=== PATIENT | female | born 1995 | race Caucasian/White ===

== ENCOUNTER 2023-01-28 07:35 | Outpatient (CLI) | payer OTHER, BC, SELFPAY | END 2023-01-28 07:36 | disposition home or self-care (01) | LOC: NFLDREF 01-29 14:31 | PROVIDERS: Visit Provider Physician Assistant | DX: Z34.90 Encounter for supervision of normal pregnancy, unspecified, unspecified trimester (principal) | CPT/HCPCS: 84702 ==

== ENCOUNTER 2023-01-30 09:15 | Outpatient (CLI) | payer OTHER, BC, SELFPAY | END 2023-01-30 09:16 | disposition home or self-care (01) | LOC: NFLDREF 15:37 | PROVIDERS: Visit Provider Physician Assistant | DX: E28.2 Polycystic ovarian syndrome (principal) | CPT/HCPCS: 84702 ==

== ENCOUNTER 2023-02-24 15:42 | Outpatient (CLI) | payer OTHER, BC, SELFPAY ==
--- NOTE | 2023-02-24 16:00 | CRLHL7_ITS ---
For Patients: As a result of the Century Cures Act, medical imaging exams and procedure reports are released immediately into your electronic medical record. You may view this report before your referring provider. If you have questions, please contact your health care provider. INDICATION: First trimester scan, establish dates. COMPARISON: None. TECHNIQUE: Real-time torres-scale imaging of the pelvis was performed. FINDINGS: Sonographic imaging demonstrates a single living intrauterine gestation. The embryo demonstrates a regular cardiac rate measuring 173 beats per minute. The embryo`s crown-rump length measurement of 1.7 cm corresponds to a gestational age of 8 weeks 1 day with a sonographic due date of 10/05/2023. There is a normal-appearing yolk sac. There are no gross abnormalities noted within the embryo at this early state of development. The gestational sac has a normal appearance. There is no evidence of a perigestational hemorrhage. The amount of fluid within the sac appears appropriate for gestational age. The cervix is closed. The myometrium appears normal. The ovaries are of normal size. Corpus luteal cyst left ovary. There are no suspicious fluid collections noted in the cul-de-sac. IMPRESSION: Single living intrauterine with sonographic gestational age 8 weeks 1 day and sonographic due date of 10/05/2023. Dictated by Morgan Meeks MD @ 02/25/2023 10:16:45 AM (Electronically Signed)
== END 2023-02-24 15:43 | disposition home or self-care (01) ==
LOC: US 15:43
PROVIDERS: Visit Provider Physician Assistant
DX: Z34.91 Encounter for supervision of normal pregnancy, unspecified, first trimester (principal); Z3A.08 8 weeks gestation of pregnancy
CPT/HCPCS: 76817; 86703; 86706; 86803; 86850; 86900; 86901; 87086; 87340; 87491; 87591

== ENCOUNTER 2023-02-24 17:45 | Outpatient (CLI) | payer OTHER, BC, SELFPAY | END 2023-02-24 17:46 | disposition home or self-care (01) | PROVIDERS: Visit Provider Physician Assistant | DX: Z34.92 Encounter for supervision of normal pregnancy, unspecified, second trimester (principal); Z3A.19 19 weeks gestation of pregnancy | CPT/HCPCS: 86592; 86704; 86762; 86787 ==

== ENCOUNTER 2023-05-20 11:52 | Outpatient (CLI) | payer OTHER, BC, SELFPAY ==
--- NOTE | 2023-05-20 12:15 | CRLHL7_ITS ---
For Patients: As a result of the 21st Century Cures Act, medical imaging exams and procedure reports are released immediately into your electronic medical record. You may view this report before your referring provider. If you have questions, please contact your health care provider. OB ULTRASOUND ??? ANATOMY SURVEY PRISCILLA by US: 10/05/2023. GA: 20 w, 2 d. INDICATION: Anatomy survey. FINDINGS: position: Breech. Cervix: Visualized. Technique: Transabdominal. Length of closed cervix: 3.2 cm. Placenta/cord: Anterior. Fundal. Posterior. Technique: Transabdominal. Placenta tip to internal OS: 7.0 cm. Umbilical Cord: 3-vessel cord. Placenta insertion: Central. Amniotic Fluid: 4.9 cm SDP (greater than/equal to: 2- less than 8 cm). SURVEY: Observed Structures Cerebellum: Yes. 1.9 cm; 19 w 6 d. Cisterna Magna: Yes. 3.7 mm. Nuchal Fold: Yes. 4.3 mm. Lateral Ventricle: Yes. 5.6 mm. CSP: Yes. Midline Falx: Yes. Choroid Plexus: Yes. Spine: Yes. Stomach: Yes. Abd Cord Insertion: Yes. Urinary Bladder: Yes. Kidneys: Yes. Diaphragm: Yes. Nose/lips: Yes. Orbital view: Yes. Profile: Yes. Upper Extremities: Yes. Lower Extremities: Yes. Hands: Yes. Feet: Yes. Four-Chamber Heart: Yes. LVOT: Yes. RVOT: Yes. 3VV: Yes. 3VTV: Yes. BPD: 4.7 cm. 20 w 2 d, 50 percent. HC: 17.9 cm. 20 w 3 d, 46 percent. AC: 15.3. cm. 20 w 4 d, 52 percent. FL: 3.4 cm. 20 w 3 d, 50 percent. FL/AC: 21.88 percent. HC/AC Ratio: 1.17. Heart rate: 159 beats per minute. age by this US: 20 w 2 d. PRISCILLA by this US: 10/05/2023. EFW: 346.99 g. Weight: 13 oz. Percentile by PRISCILLA: 57 percent. IMPRESSION: Single live intrauterine gestation. There are no gross anomalies visualized. Christina Garza M.D. Diagnostic/Breast Radiologist [employer] [email or web address] DIALLO/tomasa [email or web address]/Dictated by: Christina Garza MD @ 05/22/2023 5:52:00 AM (Electronically Signed)
== END 2023-05-20 11:53 | disposition home or self-care (01) ==
LOC: US 11:53
PROVIDERS: Visit Provider Physician Assistant
DX: Z34.92 Encounter for supervision of normal pregnancy, unspecified, second trimester (principal); Z3A.20 20 weeks gestation of pregnancy
CPT/HCPCS: 76805

== ENCOUNTER 2023-07-17 14:35 | Outpatient (CLI) | payer OTHER, BC, SELFPAY | END 2023-07-17 14:36 | disposition home or self-care (01) | LOC: NFLDREF 07-20 14:38 | PROVIDERS: Visit Provider Obstetrics & Gynecology | DX: Z34.93 Encounter for supervision of normal pregnancy, unspecified, third trimester (principal); Z3A.28 28 weeks gestation of pregnancy | CPT/HCPCS: 86592 ==

== ENCOUNTER 2023-08-14 07:03 | Outpatient (CLI) | payer OTHER, BC, SELFPAY ==
--- NOTE | 2023-08-14 07:15 | US_ITS ---
Patient: MILO VELASQUEZ Facility:?[facility] Patient ID:?[id number] Site Patient ID:?[id number]. Site :?[id number] Study:?US-OB Pelvis OB F/U GROWTH-08/14/2023 8:01:08 AM Ordering Physician:?TRISTON MORILLO M.D. Final Report: INDICATION: Third trimester scan, evaluate growth. Covid in COMPARISON: 05/20/2023 TECHNIQUE: Real time torres scale imaging of the fetus was performed. FINDINGS: Sonographic imaging demonstrates a single living intrauterine gestation. Fetus demonstrates a regular cardiac rate of 145 beats per minute. Fetus has a vertex position. The placenta lies anterior fundal. Amniotic fluid volume appears normal and there is a single deepest vertical pocket: 5.7 cm. The estimated weight is 2289gm which lies at the 80th %. On the prior OB ultrasound exam dated 05/20/2023 the estimated weight was at the 57th%. BPD and HC< 97th percentile. AC is 63rd percentile. FL 59th percentile. The HC/AC ratio measures 1.13 range (0.93-1.11). IMPRESSION: Sonographic gestational age 35 weeks 1 day and sonographic due date of 09/17/2023. Sonographic age is 18 days ahead of the clinical age. Estimated weight 80th percentile. Abdominal circumference 63rd percentile. BPD and HC< 97th percentile Dictated by Morgan Meeks MD @ 08/14/2023 11:34:28 AM Signed by:?Morgan Meeks MD @08/14/2023 11:34:28 AM (Electronic Signature)
== END 2023-08-14 07:04 | disposition home or self-care (01) ==
LOC: US 07:04
PROVIDERS: Visit Provider Obstetrics & Gynecology
DX: O98.513 Other viral diseases complicating pregnancy, third trimester (principal); U07.1 COVID-19; Z3A.35 35 weeks gestation of pregnancy
CPT/HCPCS: 76816

== ENCOUNTER 2023-09-07 09:31 | Outpatient (CLI) | payer OTHER, BC, SELFPAY | END 2023-09-07 09:32 | disposition home or self-care (01) | LOC: NFLDREF 09-11 10:02 | PROVIDERS: Visit Provider Obstetrics & Gynecology | DX: O13.3 Gestational [pregnancy-induced] hypertension without significant proteinuria, third trimester (principal); Z3A.36 36 weeks gestation of pregnancy | CPT/HCPCS: 82565; 82570; 84156; 84450; 84460; 84520 ==

== ENCOUNTER 2023-09-07 12:01 | Inpatient (IN) | payer OTHER, BC, SELFPAY ==
[2023-09-07] VITALS (135 sets, daily range): BP systolic 132–164; BP diastolic 81–110; PULSE 88–171; RESP 16–18; TEMP 36.6–37.2; O2SAT 94–100; BMI 34.9
[2023-09-07] MEDS: LACTATED RINGERS 1000 ML 1,000 ML 75 ML IV ×2 (11:14→15:00)
[2023-09-07] MEDS: LABETALOL HCL 5 MG/ML inj IVP ×2 (11:16→11:41)
[2023-09-07 11:19] LABS: Hematocrit 36.6 % (33.0-51.0); Hemoglobin* 12.3 gm/dL (12.0-16.0); Mean Corpuscular HGB Conc 34 gm/dL (32-36); Mean Corpuscular Hemoglobin 30 pg (26-34); Mean Corpuscular Volume 90 fL (80-100); Platelet Count* 317 K/uL (140-440); Red Blood Count 4.05 m/uL (4.00-5.20); White Blood Count* 12.51 K/uL (4.50-11.00)
[2023-09-07] MEDS: MAGNESIUM IV 4 GM/100 ML PIGGYBACK IVPB (11:31)
[2023-09-07 11:34] LABS: Slide Review Reflex No
[2023-09-07 11:44] LABS: Aspartate Amino Transferase* 18 U/L (12-35); Creatinine* 0.5 mg/dL (0.5-1.5); Estimated Glomerular Filt Rate 132 ml/min
[2023-09-07 11:45] LABS: Alanine Aminotransferase* 11 U/L (4-35); Blood Urea Nitrogen* 9 mg/dL (5-24)
[2023-09-07] MEDS: MAGNESIUM Infusion 40 GM/1,000 ML IV.SOLN IVPB (12:06)
[2023-09-07] MEDS: AMPICILLIN 2 GM in 0.9 % SODIUM CHLORIDE Mini-bag 100 ML IVPB (13:11)
[2023-09-07] MEDS: OXYTOCIN 30 unit/500 ML in NS 30 UNIT/500 ML BAG IVPB (14:00)
[2023-09-07] MEDS: NIFEdipine 30 MG TAB.ER.24 PO (14:11)
[2023-09-07] MEDS: AMPICILLIN 1 GM in 0.9 % SODIUM CHLORIDE Mini-bag 100 ML IVPB ×2 (17:10→22:35)
[2023-09-07 17:41] LABS: Alanine Aminotransferase* 12 U/L (4-35); Aspartate Amino Transferase* 18 U/L (12-35); Blood Urea Nitrogen* 8 mg/dL (5-24); Creatinine* 0.5 mg/dL (0.5-1.5); Est. Creatinine Clearance* 164.35; Estimated Glomerular Filt Rate 132 ml/min
[2023-09-07 17:44] LABS: Hematocrit 37.1 % (33.0-51.0); Hemoglobin* 12.1 gm/dL (12.0-16.0); Mean Corpuscular HGB Conc 33 gm/dL (32-36); Mean Corpuscular Hemoglobin 30 pg (26-34); Mean Corpuscular Volume 91 fL (80-100); Platelet Count* 310 K/uL (140-440); Red Blood Count 4.08 m/uL (4.00-5.20); White Blood Count* 13.94 K/uL (4.50-11.00)
[2023-09-07 17:49] LABS: Slide Review Reflex No
[2023-09-07 19:36] LABS: Magnesium* 4.4 mg/dL (1.5-2.6)
--- NOTE | 2023-09-07 23:03 | P.LDBA_ITS ---
Subjective History of Present Illness Time Seen by Provider: 13:00 Date Seen: 09/07/23 Narrative: Patient is being admitted to Labor and Delivery for IOL due to preeclampsia with severe features. She is a 27 year old at 36.0 weeks gestation. Her full history and physical was dictated by Dr. Roach on 09/07/23 as she was seen in clinic today. Please see this for details. Active movement. Denies Ctx, LOF, vaginal bleeding or abnormal vaginal discharge. Denies any persistent headache, vision changes, SOB, right upper quadrant/epigastric pain, or rapidly expanding edema. Specific Issues/Plans Spouse: Nicolas. Baby: Boy! Juvencio Fisher. H&P done by Dr. Roach on 09/07/2023. Placenta: bilobed 1. PCOS. Was undergoing a infertility workup, and she conceived spontaneously! 2. Anxiety, managed well with the buspirone 5 mg b.i.d. 3. History of vaping, quit with +UPT 4. Obesity, BMI 30.2 Hemoglobin A1c: 5.5% Aspirin 81 mg 12-36 weeks 1hr GTT: 139 5. HBV, non-immune 6. COVID infection on 06/09 USN for EFW at 32 weeks: BPD>97%, HC>97%, AC63%, FL59%. EFW 80%. Flu shot: Declined COVID: Declined Tdap: 07/30/2023 OB - Problem Based A/P Additional Plan (1) Pre-eclampsia, severe: Status: Acute Plan Pre-Eclampsia with severe features ? Based on severe range in blood pressures requiring IV antihypertensive ? BPs 140s -160s/90s -100s ? Symptoms: asymptomatic ? Magnesium: On magnesium sulfate for seizure prophylaxis ? IV antihypertensives: Received 20 and 40 mg of labetalol. Will give p.o. nifedipine XL 30 mg ? Pre-eclampsia labs on 09/07/2023: Hgb 12.5 Plt 346 Cr 0.5 ALT 12 AST ? UOP: Adequate Induction of labor * Cervix is favorable. Will start Pitocin and plan for AROM when she is asuncion more regularly * GBS was just collected today. I called the lab and they report that the fast return time on the result is 24 hours, even stat. Discussed with patient that I recommend antibiotics for GBS prophylaxis until we get result back. We can discontinue the antibiotics if she remains undelivered and GBS is negative. OB Exam Physical Exam Vital signs: Temp Pulse Resp BP Pulse Ox 97.9 F 96 18 135/85 99 09/07/23 22:29 09/07/23 22:29 09/07/23 22:29 09/07/23 22:29 09/07/23 22:58 Narrative: Physical exam: General: No acute distress Psych: Alert and oriented x3, full affect HEENT: Normocephalic, atraumatic Lungs: Unlabored breathing Neuro: No focal deficit. Mentating appropriately Abdomen: Gravd. Soft, no tenderness, rebound, or guarding Pelvic exam: 2/90/-3, soft, mid
[2023-09-07 23:17] LABS: Hematocrit 33.8 % (33.0-51.0); Hemoglobin* 11.1 gm/dL (12.0-16.0); Mean Corpuscular HGB Conc 33 gm/dL (32-36); Mean Corpuscular Hemoglobin 30 pg (26-34); Mean Corpuscular Volume 92 fL (80-100); Platelet Count* 291 K/uL (140-440); Red Blood Count 3.69 m/uL (4.00-5.20); White Blood Count* 12.74 K/uL (4.50-11.00)
[2023-09-07 23:20] LABS: Slide Review Reflex No
--- NOTE | 2023-09-07 23:24 | PM.OBPNL ---
Subjective Time Seen by Provider: 20:00 Date Seen: 09/07/23 Objective Vital Signs: Last Vital Signs Temp 97.9 F 09/07/23 22:29 Pulse 96 09/07/23 22:29 Resp 18 09/07/23 22:29 BP 135/85 09/07/23 22:29 Pulse Ox 100 09/07/23 23:23 Pelvic Exam Dilation (cm): 3 Effacement (%): 90 Station: -2 Comments: AROM with clear fluid. No complications and the patient tolerated the procedure well. Contractions Monitor mode: External Contraction pattern: Regular Contraction intensity: Mild Pitocin Rate (mU/min): 9 Assessment Assessment: induction ongoing Status: Category l
[2023-09-07 23:35] LABS: Alanine Aminotransferase* 11 U/L (4-35); Aspartate Amino Transferase* 16 U/L (12-35); Blood Urea Nitrogen* 8 mg/dL (5-24); Creatinine* 0.5 mg/dL (0.5-1.5); Est. Creatinine Clearance* 164.35; Estimated Glomerular Filt Rate 132 ml/min
[2023-09-08] VITALS (181 sets, daily range): BP systolic 109–164; BP diastolic 56–105; PULSE 87–127; RESP 16–18; TEMP 36.5–37; O2SAT 18–99
[2023-09-08] MEDS: ROPIVACAINE 0.2% 100 ml 100 ML 12 MG EPIDURAL ×2 (00:12→07:19)
[2023-09-08] MEDS: LIDOCAINE 2% (PF) 5 ML VIAL EPIDURAL (00:13)
--- NOTE | 2023-09-08 00:44 | PM.ANBPRC ---
[facility] Family History Paternal Grandfather Heart disease Mother High blood pressure High cholesterol Father High blood pressure High cholesterol Other Breast cancer Colon cancer Social History Narrative: History of blood transfusion: yes. 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 Marital status: . Yazdanism/cultural needs: no. Chemical or radiation exposure: no. Pre- tobacco use: Vaping. Pre- alcohol use: no. Current tobacco use: no. Current alcohol use: no. Recreational drug use: no. Dietary restrictions: no. Blood transfusion acceptable in an emergency: yes. FAMILY AND GENETIC HISTORY: Negative for recurrent loss, defects, inheritable disease PSYCHOSOCIAL HISTORY: History of depression or currently depressed: no. Current or past physical, emotional, or sexual mistreatment: no. Problems that will make it hard to make it to appointments: no What is your current living situation?: I presently have a place to live Problems where you live: no known problems In the past 12 months, utilities in danger of being shut off: no In past 12 months, lack of transportation kept you from medical appts, meetings, work, or getting things needed for daily living: no In the past 12 mos, have been you worried that your food would run out before you had money to buy more?: never true In the past 12 mos, the food you bought just didn't last and you didn't have money to buy more?: never true Smoking Status: Former smoker How often does anyone, including family, friends and others, physically hurt you: never How often does anyone, including family, friends and others, insult or talk down to you: never How often does anyone, including family, friends and others, threaten you with harm: never How often does anyone, including family, friends and others, scream or curse at you: never Little interest or pleasure in doing things: not at all Feeling down, depressed, or hopeless: not at all Meds Home Medications and Allergies Home Medications Medication Instructions Recorded Confirmed Type docosahexaenoic acid 200 mg 200 mg PO 02/24/23 09/07/23 History capsule ( DHA) multivitamin (Daily Multi-Vitamin 1 tab PO QAM 02/24/23 09/07/23 History tablet) aspirin 81 mg tablet,delayed 81 mg PO QDAY 05/20/23 09/07/23 History release (Adult Aspirin Regimen) Allergies Allergy/AdvReac Type Severity Reaction Status Date / Time Sulfa (Sulfonamide Allergy Unknown Unknown Verified 09/07/23 10:23 Antibiotics) Results Labs Labs: Laboratory Results - last 24 hr 09/07/23 09/07/23 09/07/23 11:05 17:10 23:10 WBC 12.51 H 13.94 H 12.74 H RBC 4.05 4.08 3.69 L Hgb 12.3 12.1 11.1 L Hct 36.6 37.1 33.8 MCV 90 91 92 MCH 30 30 30 MCHC 34 33 33 Plt Count 317 310 291 BUN 9 8 8 Creatinine 0.5 0.5 0.5 Estimated Creat Clear 164.35 164.35 Estimated GFR 132 132 132 Magnesium 4.4 H* AST 18 18 16 ALT 11 12 11 Blood Type A Positive Antibody Screen NEGATIVE Vital Signs Vital Signs: Last Vital Signs Temp 98.5 F 09/08/23 00:30 Pulse 100 09/08/23 00:42 Resp 18 09/07/23 23:24 BP 130/86 09/08/23 00:42 Pulse Ox 97 09/08/23 00:40 Weight: 101.196 kg Height: 170.18 cm Anesthesia Procedures Epidural Insertion Patient Location: OB Start Time: 00:00 Stop Time: 01:00 Start Date: 09/08/23 Stop Date: 09/08/23 Reason for Block: procedure for pain Patient Position: sitting Performed By: Saige Delgadillo Preanesthetic Checklist: IV checked, risks and benefits discussed, monitors and equipment checked, pre-op evaluation, timeout performed and anesthesia consent Prep: chlorhexidine gluconate Monitoring: blood pressure monitoring, continuous pulse oximetry and heart rate Approach: midline Vertebral Space: lumbar (1-5) Epidural Technique: DORINDA saline Needle Type: Tuohy needle Injection Technique: continuous catheter (continuous catheter) Needle gauge: 17 Needle Length (cm): 10 cm Needle Insertion Depth (cm): 8 Catheter Gauge: 19 Catheter Type: multi-orifice Catheter at skin depth (cm): 15 Test Dose Result: negative and lidocaine 1.5% with epinephrine 1 to 200,000
[2023-09-08] MEDS: AMPICILLIN 1 GM in 0.9 % SODIUM CHLORIDE Mini-bag 100 ML IVPB ×3 (01:49→09:20)
[2023-09-08] MEDS: ONDANSETRON 2 MG/ML inj 4 MG IV ×2 (02:46→09:04)
[2023-09-08 05:24] LABS: Hematocrit 36.3 % (33.0-51.0); Hemoglobin* 11.9 gm/dL (12.0-16.0); Mean Corpuscular HGB Conc 33 gm/dL (32-36); Mean Corpuscular Hemoglobin 30 pg (26-34); Mean Corpuscular Volume 91 fL (80-100); Platelet Count* 306 K/uL (140-440); Red Blood Count 3.97 m/uL (4.00-5.20); White Blood Count* 19.71 K/uL (4.50-11.00)
[2023-09-08 05:32] LABS: Slide Review Reflex No
[2023-09-08 05:39] LABS: Alanine Aminotransferase* 11 U/L (4-35); Aspartate Amino Transferase* 18 U/L (12-35); Blood Urea Nitrogen* 7 mg/dL (5-24); Creatinine* 0.5 mg/dL (0.5-1.5); Est. Creatinine Clearance* 164.35; Estimated Glomerular Filt Rate 132 ml/min
[2023-09-08 05:53] LABS: Magnesium* 5.7 mg/dL (1.5-2.6)
[2023-09-08] MEDS: MAGNESIUM Infusion 40 GM/1,000 ML IV.SOLN IVPB (08:24)
[2023-09-08] MEDS: LIDOCAINE 1 % PF 30 ML INJECTION (10:39)
--- NOTE | 2023-09-08 10:54 | W.PM.VAGDEL1 ---
Procedure Procedure Done: [facility] Procedure Details: Patricia is a 27-year-old G1 P 0 woman who presented on of 09/07/2023 at 36 weeks, 0 days gestation for induction of labor for preeclampsia with severe features. She was not asuncion at time of admission. Her cervical exam was 2 cm, 90%,-3 station, soft, and midposition. GBS was unknown and was collected. AROM occurred at 7:53 p.m. on 09/06 with clear fluid. ? Labor Analgesia:? Epidural ? Pitocin:? Yes ? Labor onset:? 1:00 a.m. on 09/08/2023 ? Complete:? 8:46 a.m. on 09/08/2023 ? Pushing:? A 50 3:00 a.m. ? heart tones during second stage were reassuring, category 1. ? At 10:21 a.m. a viable male infant delivered in vertex OA presentation over small second-degree perineal laceration via spontaneous vaginal delivery.? Infant was placed on maternal abdomen.? Cord was clamped and cut after a 30-60 second delay.? Nose and mouth were bulb suctioned.? weight pending.? 8 at 1 minute and 8 at 5 minutes.? Shoulder dystocia: No.? Nuchal cord: No. ? Placenta delivered spontaneously and complete at 10:35 a.m. with a 3 vessel cord. Placenta was bilobed in appearance. ? Mother and infant were stable after delivery. ? Lacerations:? Second-degree perineal and left periurethral and labial, repaired with 2-0 and 3-0 Vicryl after infiltration with a small amount of 1% lidocaine. ? Blood loss: 100 mL. Blood loss measurement type: QBL ? Sponge and needles counts are correct.
[2023-09-08 11:11] LABS: Strep B DNA Probe Negative (Negative)
[2023-09-08 11:11] LABS: Hematocrit 35.9 % (33.0-51.0); Hemoglobin* 11.7 gm/dL (12.0-16.0); Mean Corpuscular HGB Conc 33 gm/dL (32-36); Mean Corpuscular Hemoglobin 30 pg (26-34); Mean Corpuscular Volume 91 fL (80-100); Platelet Count* 303 K/uL (140-440); Red Blood Count 3.93 m/uL (4.00-5.20); White Blood Count* 19.73 K/uL (4.50-11.00)
[2023-09-08 11:15] LABS: Strep B Susceptibility Needed? No
[2023-09-08 11:17] LABS: Slide Review Reflex No
[2023-09-08 11:29] LABS: Alanine Aminotransferase* 13 U/L (4-35); Aspartate Amino Transferase* 19 U/L (12-35); Blood Urea Nitrogen* 7 mg/dL (5-24); Creatinine* 0.6 mg/dL (0.5-1.5); Est. Creatinine Clearance* 136.96; Estimated Glomerular Filt Rate 126 ml/min
[2023-09-08] MEDS: NIFEdipine 30 MG TAB.ER.24 PO ×2 (11:49→21:05)
--- NOTE | 2023-09-08 12:54 | PM.ANPOST ---
Post Anesthesia Note Post Anesthesia Note Patient seen: Inpatient Respiratory Status: adequate Cardiovascular Status: adequate Mental Status: baseline Pain: adequate Temp: baseline Anesthetic awareness: N/A Complications: none Follow care: none
[2023-09-08] MEDS: LABETALOL HCL 5 MG/ML inj IVP (13:19)
[2023-09-08] MEDS: ACETAMINOPHEN 500 MG TABLET 1000 MG PO (15:16)
[2023-09-08 18:37] LABS: Hematocrit 34.1 % (33.0-51.0); Hemoglobin* 11.1 gm/dL (12.0-16.0); Mean Corpuscular HGB Conc 33 gm/dL (32-36); Mean Corpuscular Hemoglobin 30 pg (26-34); Mean Corpuscular Volume 92 fL (80-100); Platelet Count* 308 K/uL (140-440); Red Blood Count 3.71 m/uL (4.00-5.20); White Blood Count* 19.06 K/uL (4.50-11.00)
[2023-09-08 18:38] LABS: Slide Review Reflex No
[2023-09-08 18:53] LABS: Alanine Aminotransferase* 12 U/L (4-35); Aspartate Amino Transferase* 20 U/L (12-35); Blood Urea Nitrogen* 5 mg/dL (5-24)
[2023-09-08] MEDS: LACTATED RINGERS 1000 ML 1,000 ML 30 ML IV (21:06)
[2023-09-09] VITALS (13 sets, daily range): BP systolic 115–135; BP diastolic 72–88; PULSE 88–125; RESP 16–18; TEMP 36.7–36.8; O2SAT 97
[2023-09-09] MEDS: ACETAMINOPHEN 500 MG TABLET 1000 MG PO ×3 (00:15→16:44)
[2023-09-09 00:32] LABS: Hematocrit 28.6 % (33.0-51.0); Hemoglobin* 9.3 gm/dL (12.0-16.0); Mean Corpuscular HGB Conc 33 gm/dL (32-36); Mean Corpuscular Hemoglobin 30 pg (26-34); Mean Corpuscular Volume 93 fL (80-100); Platelet Count* 276 K/uL (140-440); Red Blood Count 3.07 m/uL (4.00-5.20); White Blood Count* 17.54 K/uL (4.50-11.00)
[2023-09-09 00:38] LABS: Slide Review Reflex No
[2023-09-09 00:49] LABS: Alanine Aminotransferase* 9 U/L (4-35); Aspartate Amino Transferase* 18 U/L (12-35); Blood Urea Nitrogen* 6 mg/dL (5-24); Creatinine* 0.6 mg/dL (0.5-1.5); Est. Creatinine Clearance* 136.96; Estimated Glomerular Filt Rate 126 ml/min
[2023-09-09 01:32] LABS: Creatinine* 0.6 mg/dL (0.5-1.5); Est. Creatinine Clearance* 136.96; Estimated Glomerular Filt Rate 126 ml/min
[2023-09-09] MEDS: MAGNESIUM Infusion 40 GM/1,000 ML IV.SOLN IVPB (04:23)
[2023-09-09 07:04] LABS: Hematocrit 29.7 % (33.0-51.0); Hemoglobin* 9.7 gm/dL (12.0-16.0); Mean Corpuscular HGB Conc 33 gm/dL (32-36); Mean Corpuscular Hemoglobin 30 pg (26-34); Mean Corpuscular Volume 93 fL (80-100); Platelet Count* 300 K/uL (140-440); White Blood Count* 17.52 K/uL (4.50-11.00)
[2023-09-09 07:18] LABS: Slide Review Reflex No
[2023-09-09 07:20] LABS: Alanine Aminotransferase* 10 U/L (4-35); Aspartate Amino Transferase* 18 U/L (12-35); Blood Urea Nitrogen* 5 mg/dL (5-24); Creatinine* 0.6 mg/dL (0.5-1.5); Est. Creatinine Clearance* 136.96; Estimated Glomerular Filt Rate 126 ml/min
--- NOTE | 2023-09-09 08:02 | PM.OBPNVD1 ---
OB - PN:Subj Subjective Time Seen by Provider: 08:03 Date Seen: 09/09/23 Interval history: Ananya is a 27 y.o. who was admitted to [facility] & [facility] for IOL for severe preeclampsia.? She had an otherwise uncomplicated NVD.? ?She is currently on magnesium sulfate. ? Narrative: The patient feels well overall, though does feel a little groggy from the medication.? The pain is well controlled with current medications.? She has no new complaints.? She is exclusively pumping per her preference and supplementing as needed at this time.? the patient has done well.? Vitals have been stable.? She has remained afebrile.? Has a good appetite, is tolerating a general diet.? She is voiding without difficulty.? She is passing gas and has not had a bowel movement.? She is ambulating and denies any dizziness.? Has Small amount of rubra lochia.? She denies any vision changes, headache or epigastric pain at this time. OB - PN: Obj Exam Physical Exam: Vital signs: Temp Pulse Resp BP Pulse Ox O2 Del Method 98.3 F 99 18 123/81 97 Room Air 09/09/23 00:00 09/09/23 00:00 09/09/23 04:00 09/09/23 07:47 09/09/23 00:00 09/09/23 00:00 Narrative: GENERAL APPEARANCE:? normal affect, alert, no distress? MOOD:? appropriate? HEENT: normocephalic, neck supple, full ROM? CHEST:? Symmetrical chest wall movement.? Normal respiratory effort.? Clear to auscultation ? HEART:? regular rate and rhythm? ABDOMEN:? soft, non-tender. Uterine fundus is firm, at Umbilicus, Midline and is appropriate for the stage of recovery.? Bowel sounds present.? PERINEUM:? mild edema of the perineum, there is a 2nd degree laceration that is healing well.? EXTREMITIES:? normal and +2 edema? Preeclampsia labs remain stable at this time. AST & ALT are not elevated. OB - PN: Obj Data Labs Labs: Laboratory Results - last 24 hr 09/07/23 09/08/23 09/08/23 Unknown 11:03 18:12 WBC 19.73 H 19.06 H RBC 3.93 L 3.71 L Hgb 11.7 L 11.1 L Hct 35.9 34.1 MCV 91 92 MCH 30 30 MCHC 33 33 Plt Count 303 308 BUN 7 5 Creatinine 0.6 Cancelled Estimated Creat Clear 136.96 Cancelled Estimated GFR 126 Cancelled Magnesium 6.0 H* AST 19 20 ALT 13 12 Group B Strep DNA Negative 09/09/23 09/09/23 09/09/23 00:15 00:15 00:15 WBC 17.54 H RBC 3.07 L Hgb 9.3 L Hct 28.6 L MCV 93 MCH 30 MCHC 33 Plt Count 276 BUN 6 Creatinine 0.6 0.6 Estimated Creat Clear 136.96 136.96 Estimated GFR 126 Magnesium AST ALT Group B Strep DNA 09/09/23 09/09/23 00:15 06:48 WBC 17.52 H RBC 3.20 L Hgb 9.7 L Hct 29.7 L MCV 93 MCH 30 MCHC 33 Plt Count 300 BUN 5 Creatinine 0.6 Estimated Creat Clear 136.96 Estimated GFR 126 126 Magnesium AST 18 18 ALT 9 10 Group B Strep DNA OB - PN: A/P Delivery Assessment and Plan (1) Pre-eclampsia, severe: Status: Acute (2) NVD (normal vaginal delivery): Status: Acute (3) examination following vaginal delivery: Status: Acute Plan day: 1 Plan: routine care Comments: G 1 P 1 status post NVD?complicated by severe preeclampsia ?? 1.? Continue route PP cares? 2.? Exclusively pumping per her preference. May see if desired? 3.? Anticipate discharge home tomorrow? 4. Acute anemia.? Iron supplement ordered. 5. Severe preeclampsia. -Currently on magnesium sulfate. Anticipate off at 24 hours. Will consult OB for follow up plan
[2023-09-09] MEDS: NIFEdipine 30 MG TAB.ER.24 PO ×2 (09:04→21:12)
[2023-09-09] MEDS: DOCUSATE SODIUM 100 MG CAPSULE PO (09:04)
[2023-09-09] MEDS: FERROUS SULFATE 325 MG TABLET PO (09:05)
[2023-09-10] MEDS: ACETAMINOPHEN 500 MG TABLET 1000 MG PO (00:11)
[2023-09-10 00:13] VITALS: BP 123/82; PULSE 112; RESP 16; TEMP 36.7; O2SAT 97
[2023-09-10 00:23] LABS: Rapid Plasma Reagin (RPR) Non Reactive (Non Reactive)
[2023-09-10 03:28] VITALS: BP 126/82; PULSE 96; RESP 16; TEMP 36.7; O2SAT 98
--- NOTE | 2023-09-10 07:14 | P.DS_ITS ---
DS: Providers Provider Time Seen by Provider: 07:57 Date Seen: 09/10/23 Date of admission: 09/07/23 12:01 Primary care physician: Not a Local Provider Admitting Clinician: Floridalma Beyer MD Consults: Cecille Malone MD Attending Physician on discharge: Floridalma Beyer MD DS: Diagnosis Discharge Diagnosis (1) NVD (normal vaginal delivery): Status: Acute (2) Pre-eclampsia, severe: Status: Acute (3) examination following vaginal delivery: Status: Acute Exam Narrative: Exam Narrative: GENERAL APPEARANCE: Pleasant, , well-groomed woman in no acute di stress. VITAL SIGNS: as noted in nursing notes HEAD: Normocephalic, atraumatic. THYROID: no masses, nodularity, tenderness or enlargement. LUNGS: Clear to auscultation bilaterally without wheezes, rales or rhonchi. HEART: Regular rate and rhythm with normal S1 and S2. No gallop, rub or murmur. ABDOMEN: Fundus firm at 2 cm below the umbilicus in the midline. Soft, nontender, nondistended, with normal bowels sounds throughout. EXTREMITIES: No cyanosis, clubbing, or varicosities. Edema: []. NEUROLOGIC: Normal gait and balance. Normal deep tendon reflexes at bilateral patella 2+/2, equal without clonus. PSYCHIATRIC: alert and oriented x3. Normal speech pattern, eye contact and affect. SKIN: Warm, dry, and well perfused. Good turgor. No lesions, nodules or rashes. Const: Vital Signs, click to edit/add: Vital Signs - 24 hr 09/09/23 07:47 09/09/23 09:05 09/09/23 11:46 Temperature Pulse Rate [Pulse Oximeter] 88 Respiratory Rate 16 Blood Pressure [Ri ght Arm] 123/81 135/83 124/84 Pulse Oximetry Oxygen Delivery Me thod 09/09/23 14:02 09/09/23 16:46 09/09/23 19:43 Temperature 98.3 F 98.0 F Pulse Rate [Pulse Oximeter] 106 H 125 H Respiratory Rate 16 16 Blood Pressure [Ri ght Arm] 133/88 117/80 128/78 Pulse Oximetry 97 97 Oxygen Delivery Me thod Room Air Room Air 09/10/23 00:13 09/10/23 03:28 Temperature 98.1 F 98.0 F Pulse Rate [Pulse Oximeter] 112 H 96 Respiratory Rate 16 16 Blood Pressure [Ri ght Arm] 123/82 126/82 Pulse Oximetry 97 98 Oxygen Delivery Me thod Room Air Room Air OB - DS: Summary Hospital Course Hospital Course: Ananya is a 27 year old G 1 P 0 now 1 at 36 weeks gestation that was admitted to the Center on 09/07/23 for induction of labor due to severe preeclampsia. She had an uncomplicated vaginal delivery. She delivered a viable male . She is breast feeding. She received magnesium sulfate for seizure prophylaxis which was discontinued after 24 hours on 09/09/2023. Her blood pressures been under good control with nifedipine ER 30 mg p.o. b.i.d. planning on being discharged home today. Peripartum Data Infant delivery method: Vaginal Laceration description: Perineal - 2nd Degree Infant Gender: Male Status at Discharge Functional status at discharge: independent ambulation Overall status at discharge: patient is back to baseline Time Spent with Patient Time attestation: Total time spent providing and/or coordinating discharge services: Time spent: Less than 30 minutes Discharge Plan Discharge Disposition: Home, Self-Care Date of Admission: 09/07/23 12:01 Attending Provider on Discharge: Cecille Malone Primary Care Provider: Provider,Not a Local Condition: Stable Anticipated Discharge Date/Time: 09/10/23 13:00 Discharge Medications: New docusate sodium 100 mg Capsule 100 mg PO BID PRNQty: 100 0RF ferrous sulfate 325 mg (65 mg iron) Tablet 325 mg PO Q48H Qty: 60 0RF nifedipine 30 mg Tablet Extended Release 24hr 30 mg PO BID Qty: 90 0RF ibuprofen 600 mg Tablet 600 mg PO Q6H PRNQty: 30 0RF Continued buspirone 5 mg tablet 5 mg PO BID Qty: 90 3RF DHA 200 mg capsule 200 mg PO multivitamin [Daily Multi-Vitamin] Tablet 1 tab PO QAM Discontinued aspirin [Adult Aspirin Regimen] 81 mg tablet,delayed release (DR/EC) 81 mg PO QDAY Discharge Orders: Discharge Order (Routine); Ordered 09/10/23 Ordered By: Cecille Malone Patient Education: Preeclampsia During (DC) Additional Instructions: ACTIVITY RESTRICTIONS: * Nothing vaginally for 6 weeks: no tampons/intercourse * Off of work/school for a minimum of 6 weeks Symptoms to report to doctor: -Bleeding that saturates more than one pad per hour ?-Passing clots larger than the size of a golf ball ?-Pain not relieved by prescribed medication ?-Fever above 100.4 degrees Fahrenheit ?-A foul vaginal odor ?-Difficulty in emotions, mood and functions ?-Thoughts of hurting yourself and/or ?-Painful, reddened area in your breast ?-Any drainage, redness or tenderness in your IV/epidural site ?-Severe headache that doesn't improve after taking medications ?-Changes in vision, including temporary loss of vision, blurred vision, and/or light sensitivity ?-Upper abdominal pain (usually under ribs on the right side) ?-Decrease in urination or painful, frequent urinating ?-Chest pain ?-Shortness of breath ?-Tenderness or pain with redness and/swelling in the calf(s) of y our leg Follow-up: [facility]. [facility] 1 [facility] for blood pressure check. 2. 2 weeks: Evaluate for anxiety/depression, discuss contraceptive options and answer questions regarding infant care. 3. A 6 week visit for an annual physical exam. consultation services are available to all mothers and babies for the first year after delivery.? To make an appointment, please call [phone]. Discharge Diet: Regular Follow Up Appointments: [facility] [Provider Group] Provider,Not a Local [Primary Care Provider] - Forms: Contracts and Grants Info Instructions
[2023-09-10 08:52] VITALS: BP 105/68; PULSE 93; RESP 16; O2SAT 95
[2023-09-10] MEDS: DOCUSATE SODIUM 100 MG CAPSULE PO (09:15)
[2023-09-10] MEDS: NIFEdipine 30 MG TAB.ER.24 PO (12:31)
== END 2023-09-10 13:13 | disposition home or self-care (01) | DRG 807 ==
LOC: NFLDREF 16:25 → OB 16:25
PROVIDERS: Obstetrics & Gynecology; Admitting Provider Obstetrics & Gynecology; Visit Provider Obstetrics & Gynecology
DX: O14.14 Severe pre-eclampsia complicating childbirth (principal); Z37.0 Single live birth; O99.344 Other mental disorders complicating childbirth; F41.9 Anxiety disorder, unspecified; O70.1 Second degree perineal laceration during delivery; Z3A.36 36 weeks gestation of pregnancy
CPT/HCPCS: 01967; 36415; 82565; 82570; 83735; 84156; 84450; 84460; 84520; 85027; 86592; 86850; 86900; 86901; 87081; 87653; 88307; G0463; A9270; J0290; J2001; J2371; J2405; J2795; J3475; J7120

== ENCOUNTER 2025-04-10 16:16 | Outpatient (CLI) | payer OTHER, SELFPAY ==
--- NOTE | 2025-04-10 16:45 | CRLHL7_ITS ---
For Patients: As a result of the Century Cures Act, medical imaging exams and procedure reports are released immediately into your electronic medical record. You may view this report before your referring provider. If you have questions, please contact your health care provider. INDICATION: Dating and viability. LMP 02/10/2025. COMPARISON: None. TECHNIQUE: Ultrasound OB pelvis transvaginal for better visualization of the endometrium and ovaries. Real time grayscale imaging of the pelvis was performed. FINDINGS: Sonographic imaging demonstrates a single living intrauterine gestation. The embryo has a regular cardiac rate measuring 138 beats per minute. The embryo`s crown-rump length measures 0.9 cm which corresponds to a gestational age of 7 weeks 0 days with sonographic due date 11/27/2025. There is a normal-appearing yolk sac. The placenta has not yet developed. No evidence of a perigestational hemorrhage. The right ovary measures 3.9 x 2.3 x 3.0 cm and the left ovary measures 2.8 x 1.9 x 2.1 cm. Corpus luteal cyst in the right ovary. No free fluid in the pelvic cul-de-sac. IMPRESSION: 1. Single living intrauterine gestation corresponding to an ultrasound gestational age of 7 weeks 0 days with sonographic due date 11/27/2025. 2. The clinical gestational age by LMP is 8 weeks 3 days. Dictated by Bethany Cole MD @ 04/11/2025 4:23:07 AM (Electronically Signed)
== END 2025-04-10 16:17 | disposition home or self-care (01) ==
LOC: US 16:16
PROVIDERS: Visit Provider Physician Assistant
DX: Z34.91 Encounter for supervision of normal pregnancy, unspecified, first trimester (principal); Z3A.01 Less than 8 weeks gestation of pregnancy
CPT/HCPCS: 76817

== ENCOUNTER 2025-04-10 17:52 | Outpatient (CLI) | payer OTHER, SELFPAY ==
[2025-04-10 21:19] LABS: Chlamydia DNA Amplified* NOT DETECTED (No Detected); GC DNA Amplified* NOT DETECTED (No Detected)
== END 2025-04-10 17:53 | disposition home or self-care (01) ==
PROVIDERS: Visit Provider Physician Assistant
DX: Z34.91 Encounter for supervision of normal pregnancy, unspecified, first trimester (principal); Z3A.08 8 weeks gestation of pregnancy
CPT/HCPCS: 82565; 82570; 83020; 83021; 84156; 84450; 84460; 84520; 85660; 86592; 86703; 86704; 86706; 86762; 86787; 86803; 86850; 87086; 87340; 87491; 87591

== ENCOUNTER 2025-04-13 06:00 | Outpatient (CLI) | payer OTHER, SELFPAY | END 2025-04-13 06:01 | disposition home or self-care (01) | LOC: NFLDREF 04-27 15:57 | PROVIDERS: Visit Provider Physician Assistant | DX: O13.1 Gestational [pregnancy-induced] hypertension without significant proteinuria, first trimester (principal) | CPT/HCPCS: 82570; 84156 ==